=== PATIENT | male | born 1970 | race Caucasian/White ===

== ENCOUNTER 2016-05-03 12:01 | Inpatient (IN) | payer MEDICAID, OTHER ==
[2016-05-03] VITALS (8 sets, daily range): BP systolic 119–171; BP diastolic 57–85; PULSE 64–70; RESP 16–24; TEMP 97.1–97.9; O2SAT 94–99
[~2016-05-03] VITALS: Ht 177.8 cm; Wt 92.3 kg
[2016-05-03] MEDS ORDERED: HYDR-3516 PO (12:13)
[2016-05-03] MEDS ORDERED: LORA-392 PO (12:13)
[2016-05-03] MEDS ORDERED: LIPI40TA PO (12:13)
[2016-05-03] MEDS ORDERED: FISH1000 PO (12:13)
[2016-05-03] MEDS ORDERED: PROT40TA PO (12:13)
--- NOTE | 2016-05-03 12:23 | PD ---
HPI Chief Complaint: GI Complaint Time Seen by Provider: 12:18 Travel History International Travel<30 days: No Contact w/Intl Traveler<30days: No Traveled to known affect area: No History of Present Illness HPI 45-year-old male with history of hypertriglyceridemia resultant pancreatitis episodes. He presents for evaluation of abdominal pain. Symptoms started this morning at 9 AM. He describes it as a gnawing pain in the epigastric region which is constant with associated nausea, vomiting today. Denies chest pain, shortness of breath, fevers, chills, dysuria, hematuria, flank pain. He reports that the pain feels like previous pancreatitis episodes that he has had in the past. His local primary care physician is Dr. Coelho. He endorses very occasional alcohol use socially, none yesterday or today. No other complaints. PFSH Past Medical History Pancreatitis: Yes Influenza Vaccination: Yes Past Surgical History Surgical History: No Previous Surgery Social History Alcohol Use: Yes (occ) Tobacco Use: No Substance Use: Yes (marijuana occ) Allergies-Medications (Allergen,Severity, Reaction): Coded Allergies: No Known Allergies (Unverified , 05/03/16) Reported Meds & Prescriptions Reported Meds & Active Scripts Active Reported Fish Oil ([place]-3 Fatty Acids) 1,000 Mg Cap 1,000 Mg PO DAILY Hydrocodone-Acetaminophen 5-325 mg Tab 1 Tab PO Q6H PRN Ativan (Lorazepam) 0.5 Mg Tab 0.5 Mg PO Q4H PRN Protonix (Pantoprazole Sodium) 40 Mg Tab 40 Mg PO DAILY Lipitor (Atorvastatin Calcium) 40 Mg Tab 40 Mg PO HS Review of Systems Except as stated in HPI: all other systems reviewed are Neg Physical Exam Narrative GENERAL: Well-developed well-nourished male in no acute distress SKIN: Warm and dry. HEAD: Atraumatic. Normocephalic. EYES: Pupils equal and round. No scleral icterus. No injection or drainage. ENT: No nasal bleeding or discharge. Mucous membranes pink and moist. NECK: Trachea midline. No JVD. CARDIOVASCULAR: Regular rate and rhythm. No murmur appreciated. RESPIRATORY: No accessory muscle use. Clear to auscultation. Breath sounds equal bilaterally. GASTROINTESTINAL: Abdomen soft, there is some epigastric tenderness to palpation without guarding. No flank or periumbilical ecchymosis. MUSCULOSKELETAL: No obvious deformities. No edema. NEUROLOGICAL: Awake and alert. No obvious cranial nerve deficits. Motor grossly within normal limits. Normal speech. Data Data Last Documented VS Vital Signs Date Time Temp Pulse Resp B/P Pulse Ox O2 Delivery O2 Flow Rate FiO2 05/03/16 13:42 16 98 Room Air 05/03/16 12:04 97.9 68 137/77 Orders Complete Blood Count With Diff (05/03/16 12:24) Comprehensive Metabolic Panel (05/03/16 12:24) Lipase (05/03/16 12:24) Prothrombin Time / Inr (Pt) (05/03/16 12:24) Act Partial Throm Time (Ptt) (05/03/16 12:24) Urinalysis - C+S If Indicated (05/03/16 12:24) Iv Access Insert/Monitor (05/03/16 12:24) Ecg Monitoring (05/03/16 12:24) Oximetry (05/03/16 12:24) NPO (05/03/16 12:24) Morphine Inj (Morphine Inj) (05/03/16 12:30) Ondansetron Inj (Zofran Inj) (05/03/16 12:30) Sodium Chlor 0.9% 1000 Ml Inj (Ns 1000 M (05/03/16 12:24) Sodium Chloride 0.9% Flush (Ns Flush) (05/03/16 12:30) Electrocardiogram (05/03/16 12:24) Hydromorphone Pf Inj (Dilaudid Pf Inj) (05/03/16 13:45) Ondansetron Inj (Zofran Inj) (05/03/16 14:45) Sodium Chlor 0.9% 1000 Ml Inj (Ns 1000 M (05/03/16 16:26) Labs Laboratory Tests Test 05/03/16 05/03/16 05/03/16 12:30 13:30 14:14 White Blood Count 18.1 TH/MM3 Red Blood Count 4.90 MIL/MM3 Hemoglobin 13.9 GM/DL Hematocrit 41.1 % Mean Corpuscular Volume 83.9 FL Mean Corpuscular Hemoglobin 28.5 PG Mean Corpuscular Hemoglobin 33.9 % Concent Red Cell Distribution Width 13.3 % Platelet Count 370 TH/MM3 Mean Platelet Volume 9.2 FL Neutrophils (%) (Auto) 72.5 % Lymphocytes (%) (Auto) 20.1 % Monocytes (%) (Auto) 5.8 % Eosinophils (%) (Auto) 1.1 % Basophils (%) (Auto) 0.5 % Neutrophils # (Auto) 13.1 TH/MM3 Lymphocytes # (Auto) 3.6 TH/MM3 Monocytes # (Auto) 1.1 TH/MM3 Eosinophils # (Auto) 0.2 TH/MM3 Basophils # (Auto) 0.1 TH/MM3 CBC Comment AUTO DIFF Differential Comment Hematology Comments Prothrombin Time 10.7 SEC Prothromb Time International 1.0 RATIO Ratio Activated Partial 22.6 SEC Thromboplast Time Total Bilirubin 0.8 MG/DL Alkaline Phosphatase 48 U/L Total Protein 7.2 GM/DL Lipase 3484 U/L Urine Color YELLOW Urine Turbidity CLOUDY Urine pH 8.0 Urine Specific [place] 1.024 Urine Protein TRACE mg/dL Urine Glucose (UA) NEG mg/dL Urine Ketones NEG mg/dL Urine Occult Blood SMALL Urine Nitrite NEG Urine Bilirubin NEG Urine Urobilinogen LESS THAN 2.0 MG/DL Urine Leukocyte Esterase NEG Urine RBC 33 /hpf Urine WBC 1 /hpf Urine Amorphous Sediment RARE Urine Mucus FEW /lpf Microscopic Urinalysis Comment CULT NOT INDICATED MDM Medical Decision Making Medical Screen Exam Complete: Yes Emergency Medical Condition: Yes Medical Record Reviewed: Yes Differential Diagnosis Pancreatitis, hemorrhagic pancreatitis, cholecystitis, gastroenteritis, colitis , diverticulitis, AAA Narrative Course 45-year-old male with history of hypertriglyceridemia, presents for evaluation of epigastric pain started this morning, similar to previous episodes of pancreatitis. Examination he has some epigastric tenderness to palpation, some nausea and vomiting here in the ED. The patient was given pain medication and nausea medicine and he does feel improved. His lipase is elevated at 3484 with a WBC count of 18.1. Therefore the patient will be admitted for further evaluation and treatment of acute pancreatitis. Discussed with Dr. Meza who is agreeable with admission. Procedures EKG Prior to Arrival: Yes Diagnosis Primary Impression: Acute pancreatitis Qualified Code: K85.90 - Acute pancreatitis, unspecified complication status, unspecified pancreatitis type Admitting Information Admitting Physician Requests: Admit Chidi Carter May 03, 2016 12:23
[2016-05-03] MEDS ORDERED: SODIUM CHLOR 0.9% 1000 ML INJ 1,000 ML IV SCH ×2 (12:24→16:26)
[2016-05-03] MEDS ORDERED: MORPHINE SULFATE 4 MG/ML INJ IV PUSH ONE (12:30)
[2016-05-03] MEDS ORDERED: ONDANSETRON HCL 4 MG/2 ML VIAL IVP ONE (12:30)
[2016-05-03] MEDS ORDERED: SODIUM CHLORIDE 0.9% FLUSH 5 ML FLUSH IVF PRN (12:30)
--- NOTE | 2016-05-03 12:53 | PD ---
Physical Exam Date Seen by Provider: May 03, 2016 Narrative I, Dr. Oquendo, have reviewed the advance practice practitioner's documentation and am in agreement, met with the patient face to face, made the diagnosis, and the medical decision making was done by me. *My assessment and Findings: Patient is complaining of "my pancreatitis is acting up again" Data Data Last Documented VS Vital Signs Date Time Temp Pulse Resp B/P Pulse Ox O2 Delivery O2 Flow Rate FiO2 05/03/16 12:04 97.9 68 24 137/77 99 Room Air Orders Complete Blood Count With Diff (05/03/16 12:24) Comprehensive Metabolic Panel (05/03/16 12:24) Lipase (05/03/16 12:24) Prothrombin Time / Inr (Pt) (05/03/16 12:24) Act Partial Throm Time (Ptt) (05/03/16 12:24) Urinalysis - C+S If Indicated (05/03/16 12:24) Iv Access Insert/Monitor (05/03/16 12:24) Ecg Monitoring (05/03/16 12:24) Oximetry (05/03/16 12:24) NPO (05/03/16 12:24) Morphine Inj (Morphine Inj) (05/03/16 12:30) Ondansetron Inj (Zofran Inj) (05/03/16 12:30) Sodium Chlor 0.9% 1000 Ml Inj (Ns 1000 M (05/03/16 12:24) Sodium Chloride 0.9% Flush (Ns Flush) (05/03/16 12:30) Electrocardiogram (05/03/16 12:24) [facility] Supervised Visit with JOSE: Yes Rianna Oquendo MD May 03, 2016 12:53
[2016-05-03 13:41] LABS: WHITE BLOOD COUNT 18.1 TH/MM3 (4.0-11.0)
[2016-05-03 13:42] LABS: AUTOMATED NEUTROPHIL # 13.1 TH/MM3 (1.8-7.7); BASOPHIL # 0.1 TH/MM3 (0-0.2); BASOPHIL % 0.5 % (0.0-2.0); EOSINOPHIL # 0.2 TH/MM3 (0-0.4); EOSINOPHIL % 1.1 % (0.0-4.0); HEMATOCRIT 41.1 % (39.0-51.0); LYMPH % 20.1 % (9.0-44.0); LYMPHOCYTE # 3.6 TH/MM3 (1.0-4.8); MEAN CELL VOLUME 83.9 FL (80.0-100.0); MEAN CORPUSCULAR HEMOGLOBIN 28.5 PG (27.0-34.0); MEAN CORPUSCULAR HGB CONC 33.9 % (32.0-36.0); MONO % 5.8 % (0.0-8.0); NEUT % 72.5 % (16.0-70.0); PLATELET COUNT 370 TH/MM3 (150-450); RED CELL DISTRIBUTION WIDTH 13.3 % (11.6-17.2)
[2016-05-03 13:45] LABS: HEMO FLAGS AUTO DIFF
[2016-05-03] MEDS ORDERED: HYDROmorphone HCL PF 1 MG/ML VIAL IV PUSH ONE (13:45)
[2016-05-03 14:06] LABS: PROTHROMBIN TIME - PATIENT 10.7 SEC (9.8-11.6)
[2016-05-03 14:07] LABS: APTT (PATIENT) 22.6 SEC (24.3-30.1)
[2016-05-03 14:26] LABS: ALKALINE PHOSPHATASE 48 U/L (45-117); TOTAL BILIRUBIN ADULT 0.8 MG/DL (0.2-1.0)
[2016-05-03] MEDS ORDERED: ONDANSETRON HCL 4 MG/2 ML VIAL IV PUSH ONE (14:45)
[2016-05-03 14:48] LABS: BLOOD, URINE SMALL (NEG); COMMENT (UR) CULT NOT INDICATED; CULTURE IF INDICATED CULT NOT INDICATED; GLUCOSE,URINE NEG (NEG); KETONE, URINE NEG (NEG); MUCUS URINE FEW /lpf (OCC); NITRITE,URINE NEG (NEG); URINE COLOR YELLOW (YELLW/STRAW)
[2016-05-03 17:11] LABS: ANION GAP 9 MEQ/L (5-15); BICARBONATE 22.8 MEQ/L (21.0-32.0); BLOOD UREA NITROGEN 15 MG/DL (7-18); CHLORIDE 101 MEQ/L (98-107); SODIUM (NA) 133 MEQ/L (136-145)
[2016-05-03] MEDS ORDERED: MORPHINE SULFATE 8 MG/ML INJ IV PUSH PRN (17:15)
[2016-05-03 17:32] LABS: AST (GOT) 271 U/L (15-37)
[2016-05-03 17:33] LABS: GLOMERULAR FILTRATION RATE 84 ML/MIN (>89)
[2016-05-03] MEDS: DEXT 5%-NACL 0.45% 1000 ML INJ 1,000 ML IV SCH (17:58)
[2016-05-03] MEDS: FAMOTIDINE 20 MG/2 ML VIAL IV PUSH SCH (17:58)
[2016-05-03 18:18] LABS: ALT (GPT) 46 U/L (12-78)
[2016-05-03] MEDS: ONDANSETRON HCL 4 MG/2 ML VIAL IV PUSH PRN (19:12)
[2016-05-03] MEDS: ATORVASTATIN 40 MG TAB PO SCH (20:01)
[2016-05-03] MEDS ORDERED: HYDROmorphone HCL PF 1 MG/ML VIAL IV PRN (20:30)
[2016-05-03] MEDS: LORazepam 0.5 MG TAB PO PRN (23:01)
[2016-05-03] MEDS: HYDROmorphone HCL PF 1 MG/ML VIAL IV PRN (23:01)
[2016-05-04] VITALS (7 sets, daily range): BP systolic 133–144; BP diastolic 73–90; PULSE 68–110; RESP 16–20; TEMP 97.5–99.4; O2SAT 95–98
[2016-05-04] MEDS: DEXT 5%-NACL 0.45% 1000 ML INJ 1,000 ML IV SCH ×4 (00:40→20:01)
[2016-05-04] MEDS: HYDROmorphone HCL PF 1 MG/ML VIAL IV PRN ×7 (01:54→23:05)
[2016-05-04] MEDS: ONDANSETRON HCL 4 MG/2 ML VIAL IV PUSH PRN ×3 (01:55→13:30)
[2016-05-04] MEDS ORDERED: HYDROmorphone HCL PF 1 MG/ML VIAL IV ONE (05:00)
[2016-05-04] MEDS ORDERED: HYDROmorphone HCL PF 2 MG/ML VIAL IV PRN ×2 (05:15→12:15)
[2016-05-04] MEDS: FAMOTIDINE 20 MG/2 ML VIAL IV PUSH SCH ×2 (05:35→17:05)
[2016-05-04 07:52] LABS: HEMATOCRIT 40.5 % (39.0-51.0); MEAN CELL VOLUME 83.7 FL (80.0-100.0); MEAN CORPUSCULAR HEMOGLOBIN 29.9 PG (27.0-34.0); MEAN CORPUSCULAR HGB CONC 35.8 % (32.0-36.0); PLATELET COUNT 274 TH/MM3 (150-450); RED BLOOD COUNT 4.84 MIL/MM3 (4.50-5.90); RED CELL DISTRIBUTION WIDTH 13.1 % (11.6-17.2); REVIEW FLAG FINAL; WHITE BLOOD COUNT 17.6 TH/MM3 (4.0-11.0)
[2016-05-04] MEDS: PANTOPRAZOLE SOD 40 MG DELAYED RELEASE TAB PO SCH (08:04)
[2016-05-04 08:30] LABS: ALT (GPT) 28 U/L (12-78); ANION GAP 8 MEQ/L (5-15); AST (GOT) 21 U/L (15-37); BLOOD UREA NITROGEN 7 MG/DL (7-18); CHLORIDE 100 MEQ/L (98-107); POTASSIUM 3.8 MEQ/L (3.5-5.1); SODIUM (NA) 136 MEQ/L (136-145)
[2016-05-04 08:32] LABS: ALKALINE PHOSPHATASE 46 U/L (45-117); TOTAL BILIRUBIN ADULT 0.9 MG/DL (0.2-1.0)
[2016-05-04] MEDS: ENOXAPARIN SODIUM 40 MG/0.4 ML SYRINGE SQ SCH (11:00)
--- NOTE | 2016-05-04 11:46 | MH ---
cc: EDVIN CUELLAR MD DATE OF ADMISSION: 05/03/2016 CHIEF COMPLAINT The patient came to the ER complaining of abdominal pain for one day. HISTORY OF PRESENT ILLNESS This is a 45-year-old obese male with prior history of recurrent pancreatitis. He admits to drinking alcohol. 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 He also has history of hypertriglyceridemia. He had multiple episodes of pancreatitis in the past. He was in his usual state of health until yesterday when he developed severe abdominal pain. He described this as constant bad pain involving upper abdomen and was non-radiating, associated with nauseousness, he denies vomiting. Denies fever or chills. Pain was worsened when eating. Due to the severity of pain he came to the hospital. Upon arrival he was noted to be hemodynamically stable. He has significant epigastric tenderness. Labs show evidence of leukocytosis with elevated liver enzymes and lipase. He was diagnosed with acute pancreatitis. He was given IV fluids along with IV analgesics. Recommendation was given by the ER physician for the patient to be admitted to the hospital. PAST MEDICAL HISTORY Past medical history of this patient is significant for: 1. Recurrent pancreatitis. 2. Hyperlipidemia. 3. GERD. PAST SURGICAL HISTORY The patient denies any major operations. SOCIAL HISTORY The patient denies smoking, drinks alcohol a few beers a day and sometimes drinks vodka mostly on the weekends. He denies any intravenous drug abuse. He uses weed sometimes. He is and lives with his . MEDICATION Home medications: 1. He takes Ativan 0.5 mg q.4 hours p.r.n. 2. Lipitor 40 mg daily. 3. Lortab 5 one q. 6 hours p.r.n. 4. [place]-3 fatty acid daily. 5. Protonix 40 mg daily. FAMILY HISTORY Father at the age of 57 from prostate cancer. Mother is 70 years old, she is healthy except for hyperlipidemia. REVIEW OF SYSTEMS The patient denies headache, loss of vision, double vision. Denies change in hearing. Denies sore throat, dysphagia, odynophagia. Denies cough or sputum production. Denies fevers, chills, night sweats. He reports nauseousness and had some vomiting after taking IV Dilaudid. He denies change in bowel pattern, he had large BM yesterday, denies melena or bright red blood per rectum. Denies dysuria or hematuria. He is not very compliant with his cholesterol medication and does not take them as regularly as he should. He also reports hoarseness of his voice for the last couple of days. Otherwise, review of systems is negative for 12 systems except for what is mentioned above. PHYSICAL EXAMINATION GENERAL: A middle-aged male lying in bed. He is awake, alert. He is oriented x3. VITAL SIGNS: Upon arrival, blood pressure 137/77, pulse 68, respirations 24, temperature 97.9. 02 sat 99%. HEENT: Head examination, normocephalic, atraumatic. Eye exam, extraocular movements intact. Pupils are around and reactive. ENT, no throat congestion. No oral ulcers or thrush. Ears are clear. NECK: Supple. No JVD. No bruits. CARDIOVASCULAR: S1, S2 audible. Regular rhythm. No murmur or gallop. RESPIRATORY SYSTEM: Lungs are clear to auscultation. No crackles or rhonchi appreciated. GI: Abdomen is soft. The patient has upper abdominal tenderness and some voluntary guarding. No rigidity. No rebound tenderness. No ___ sign. No Robe's sign. EXTREMITIES: No edema, cyanosis or clubbing. Feet are warm to touch. Homans' sign is negative. LABORATORY DATA White count 18.1, hemoglobin 13.9, hematocrit 41.1, platelet count of 370, MCV of 83.9. Sodium 133, potassium 3.6, chloride 101, bicarb 22.8, BUN of 15, creatinine 0.97, glucose 149, calcium 8.2. ALP 48, AST 271, ALT 46, total bili 0.8, albumin 3.8, total protein 7.8. Lipase 374 and 84. Repeat lipase today is 2617. Urine shows yellow cloudy urine, pH 8.0, specific gravity 1.024, occult blood small, RBCs 33. ASSESSMENT 1. Acute pancreatitis, suspect alcohol induced plus/minus hypertriglyceridemia probably playing some role. 2. The leukocytosis due to above. 3. Elevated AST due to alcohol use. 4. History of alcohol use. 5. History of anxiety. 6. Gastroesophageal reflux disease. 7. Microscopic hematuria. PLAN The patient will be admitted to the hospital. He is currently n.p.o. Will aggressively hydrate him and put him on D5 half NS 150 cc an hour. Control his pain with IV analgesics. Obtain ultrasound of the liver and gallbladder. Consult GI telephone interviewer. Put on Pepcid for GI protection. Resume home medications. Give him subcu Lovenox for DVT prophylaxis. Monitor CBC, electrolyte. The patient meets inpatient criteria due to severe pancreatitis which can get worse and may turn into pancreatic abscess, pseudocyst formation or severe pancreatitis that may result in organ failure. Expected length of stay is about 3-4 days, possibly discharge home when stable. I have counseled the patient against alcohol use, I have advised him to completely abstain from drinking. Hazards of continuous drinking, especially in the face of recurrent pancreatitis was explained. Consequences of recurrent pancreatitis was also explained to the patient and he relates understanding. MD BERNARDA Trinh/JOAN /10:46 AM 11:09 AM
--- NOTE | 2016-05-04 12:37 | PD.CONS ---
HPI History of Present Illness This is a 45 year old male admitted with abdominal pain which was severe the pain was constant and involved the upper abdomen and was associated with N/V.He has had multiple episodes of pancreatitis in the past which he states is secondary to hypertriglycerides. He had nausea, denies vomiting. Denies fever or chills. Pain was worse with eating. On exam he has significant epigastric tenderness. Labs showed evidence of leukocytosis, and a lipase of 3484 down today to 2617.He is NPO. He did admite to drinking a significant amount of alcohol over holiday. (Felicia Ruiz) PFSH Past Medical History Recurrent pancreatitis Hypertriglyceridemia GERD Past Surgical History Denies any surgeries in the past (Felicia Ruiz) Coded Allergies: No Known Allergies (Unverified , 05/03/16) Medications Reported Meds & Active Scripts Active Reported Fish Oil ([place]-3 Fatty Acids) 1,000 Mg Cap 1,000 Mg PO DAILY Hydrocodone-Acetaminophen 5-325 mg Tab 1 Tab PO Q6H PRN Ativan (Lorazepam) 0.5 Mg Tab 0.5 Mg PO Q4H PRN Protonix (Pantoprazole Sodium) 40 Mg Tab 40 Mg PO DAILY Lipitor (Atorvastatin Calcium) 40 Mg Tab 40 Mg PO HS Family History Prostate CA Hyperlipidemia Social History Drinks 1 to 2 drinks daily 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 Uses Marijuana occ (Felicia Ruiz) Review of Systems Gastrointestinal: COMPLAINS OF: Abdominal pain, Nausea, DENIES: Constipation, Diarrhea, Vomiting (Felicia Ruiz) GI Exam Vitals I&O Vital Signs Date Time Temp Pulse Resp B/P Pulse Ox O2 Delivery O2 Flow Rate FiO2 05/04/16 08:00 97.6 78 20 144/86 98 05/04/16 04:00 98.2 71 18 135/77 97 05/04/16 00:00 97.9 68 18 139/90 97 05/03/16 18:40 97.1 70 16 138/77 99 05/03/16 17:00 64 18 151/81 95 Room Air 05/03/16 16:00 64 18 136/63 95 Room Air 05/03/16 15:00 66 16 171/85 95 Room Air 05/03/16 14:00 70 18 119/57 94 Room Air 05/03/16 13:42 16 98 Room Air 05/03/16 13:00 68 16 132/65 95 Room Air I/O 05/03/16 05/03/16 05/03/16 05/04/16 05/04/16 05/04/16 07:00 15:00 23:00 07:00 15:00 23:00 Intake Total 0 ml 1588 ml 0 ml Output Total 300 ml Balance 0 ml 1588 ml -300 ml Intake Oral 0 ml 0 ml IV Total 1588 ml Output Urine Total 300 ml # Voids 2 1 # Bowel Movements 0 Laboratory Test 05/03/16 05/03/16 05/03/16 05/03/16 12:30 13:30 14:14 16:04 White Blood Count 18.1 TH/MM3 Red Blood Count 4.90 MIL/MM3 Hemoglobin 13.9 GM/DL Hematocrit 41.1 % Mean Corpuscular Volume 83.9 FL Mean Corpuscular Hemoglobin 28.5 PG Mean Corpuscular Hemoglobin 33.9 % Concent Red Cell Distribution Width 13.3 % Platelet Count 370 TH/MM3 Mean Platelet Volume 9.2 FL Neutrophils (%) (Auto) 72.5 % Lymphocytes (%) (Auto) 20.1 % Monocytes (%) (Auto) 5.8 % Eosinophils (%) (Auto) 1.1 % Basophils (%) (Auto) 0.5 % Neutrophils # (Auto) 13.1 TH/MM3 Lymphocytes # (Auto) 3.6 TH/MM3 Monocytes # (Auto) 1.1 TH/MM3 Eosinophils # (Auto) 0.2 TH/MM3 Basophils # (Auto) 0.1 TH/MM3 CBC Comment AUTO DIFF Differential Comment Hematology Comments Prothrombin Time 10.7 SEC Prothromb Time International 1.0 RATIO Ratio Activated Partial 22.6 SEC Thromboplast Time Urine Color YELLOW Urine Turbidity CLOUDY Urine pH 8.0 Urine Specific [place] 1.024 Urine Protein TRACE mg/dL Urine Glucose (UA) NEG mg/dL Urine Ketones NEG mg/dL Urine Occult Blood SMALL Urine Nitrite NEG Urine Bilirubin NEG Urine Urobilinogen LESS THAN 2.0 MG/DL Urine Leukocyte Esterase NEG Urine RBC 33 /hpf Urine WBC 1 /hpf Urine Amorphous Sediment RARE Urine Mucus FEW /lpf Microscopic Urinalysis Comment CULT NOT INDICATED Sodium Level 133 MEQ/L Potassium Level MEQ/L Chloride Level 101 MEQ/L Carbon Dioxide Level 22.8 MEQ/L Anion Gap 9 MEQ/L Blood Urea Nitrogen 15 MG/DL Creatinine 0.97 MG/DL Estimat Glomerular Filtration 84 ML/MIN Rate Random Glucose 149 MG/DL Calcium Level 8.2 MG/DL Total Bilirubin 0.8 MG/DL Aspartate Amino Transf 271 U/L (AST/SGOT) Alanine Aminotransferase 46 U/L (ALT/SGPT) Alkaline Phosphatase 48 U/L Total Protein 7.2 GM/DL Albumin 3.8 GM/DL Lipase 3484 U/L Test 05/03/16 05/04/16 21:29 07:00 Potassium Level 3.6 MEQ/L 3.8 MEQ/L White Blood Count 17.6 TH/MM3 Red Blood Count 4.84 MIL/MM3 Hemoglobin 14.5 GM/DL Hematocrit 40.5 % Mean Corpuscular Volume 83.7 FL Mean Corpuscular Hemoglobin 29.9 PG Mean Corpuscular Hemoglobin 35.8 % Concent Red Cell Distribution Width 13.1 % Platelet Count 274 TH/MM3 Mean Platelet Volume 8.1 FL Sodium Level 136 MEQ/L Chloride Level 100 MEQ/L Carbon Dioxide Level 28.0 MEQ/L Anion Gap 8 MEQ/L Blood Urea Nitrogen 7 MG/DL Creatinine 0.97 MG/DL Random Glucose 136 MG/DL Calcium Level 8.9 MG/DL Total Bilirubin 0.9 MG/DL Aspartate Amino Transf 21 U/L (AST/SGOT) Alanine Aminotransferase 28 U/L (ALT/SGPT) Alkaline Phosphatase 46 U/L Total Protein 7.0 GM/DL Albumin 3.9 GM/DL Lipase 2617 U/L Physical Examination HEENT: Pupils round and reactive to light; normocephalic; atraumatic; no jaundice. Throat is clear. NECK: Neck is supple, no JVD, no lymphadenopathy. CHEST: Chest is clear to auscultation and percussion. CARDIAC: Regular rate and rhythm with no murmur gallop or rubs. ABDOMEN: Soft, nondistended, tender epigastric area; no hepatosplenomegaly; bowel sounds are present in all four quadrants. EXTREMITIES: No clubbing, cyanosis, or edema. SKIN: Normal; no rash; no jaundice. 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 (Felicia Ruiz) Assessment and Plan Assessment: (1) Acute pancreatitis Plan: Has recurrent Pancreatitis related to hyperlipidemia but did amount to drinking alcohol and this could be alcohol induced Has significant epigastric tenderness and nausea US liver and gallbladder are ordered Continue aggressive Iv fluid hydration May need CT abdomen Pain management Antiemetics (2) GERD (gastroesophageal reflux disease) Plan: Continue PPI Epigastric pain likely secondary to pancreatitis (3) Leukocytosis Plan: Likely secondary to acute pancreatitis Plan Plan -IV hydration -US liver and GB -NPO -Lipase, CBC and lipid panel in am -Alcohol cessation -Pain management -PPI -Autoimmune work up -May need CT abdomen -Supportive care Thank you for this consult Patient was seen by Dr Rossi and myself, this consult is written on his behalf (Felicia Ruiz) Physician Comments Seen and examined, plan as above, will follow up with you. (Diana Rossi MD) Problem Qualifiers (1) Acute pancreatitis: Qualified Code: K85.90 - Acute pancreatitis, unspecified complication status, unspecified pancreatitis type (2) GERD (gastroesophageal reflux disease): Qualified Code: K21.9 - Gastroesophageal reflux disease, esophagitis presence not specified Felicia Ruiz May 04, 2016 12:37 Diana Rossi MD May 04, 2016 14:33
[2016-05-04 13:29] LABS: HDL CHOLESTEROL 36.7 MG/DL (40.0-60.0)
[2016-05-04] MEDS: LORazepam 0.5 MG TAB PO PRN ×2 (13:30→18:16)
--- NOTE | 2016-05-04 16:17 | RADRPT ---
EXAM DATE/TIME: 05/04/2016 14:17 [place] COMPARISON: No previous studies available for comparison. INDICATIONS : Increased lab values. MEDICAL HISTORY : Hypercholesterolemia. Pancreatitis. SURGICAL HISTORY : None. ENCOUNTER: Initial ACUITY: 1 day PAIN SCORE: 3/10 LOCATION: Abdomen. MEASUREMENTS: LIVER: 17.9 cm length COMMON DUCT: 4 mm RIGHT KIDNEY: 12.2 x 5.1 x 5.6 cm SPLEEN: 10.7 cm length FINDINGS: LIVER: Normal echotexture without focal lesion or ductal dilatation. COMMON DUCT: No intraluminal mass or stone visualized. GALLBLADDER: There is a 17 mm mobile stone in the lumen. No gallbladder wall thickening or pericholecystic fluid. PANCREAS: The visualized portions are within normal limits. RIGHT KIDNEY: No hydronephrosis, stone or mass. SPLEEN: No focal lesion. CONCLUSION: 1. Nonspecific mild hepatomegaly. 2. Single stone in an otherwise normal-appearing gallbladder. No ductal stone or ductal dilatation de monstrated. Carmelo Atkins MD on May 04, 2016 at 16:14 Board Certified Radiologist. This report was verified electronically.
--- NOTE | 2016-05-04 17:46 | EKG ---
Date Performed: 05/03/2016 Time Performed: 14:44:10 PTAGE: 45 years EKG: Sinus rhythm NORMAL ECG NO PREVIOUS TRACING DOCTOR: Nicky Lema Interpretating Date/Time 05/04/2016 17:44:20
[2016-05-04] MEDS: ATORVASTATIN 40 MG TAB PO SCH (20:01)
[2016-05-05] VITALS (8 sets, daily range): BP systolic 120–131; BP diastolic 56–77; PULSE 77–89; RESP 16–18; TEMP 96–100.5; O2SAT 95–99
[2016-05-05] MEDS: DEXT 5%-NACL 0.45% 1000 ML INJ 1,000 ML IV SCH ×3 (01:31→22:24)
[2016-05-05] MEDS: HYDROmorphone HCL PF 1 MG/ML VIAL IV PRN ×7 (02:11→22:44)
[2016-05-05] MEDS: FAMOTIDINE 20 MG/2 ML VIAL IV PUSH SCH ×2 (05:20→17:49)
[2016-05-05 08:07] LABS: HEMATOCRIT 40.4 % (39.0-51.0); MEAN CELL VOLUME 87.2 FL (80.0-100.0); MEAN CORPUSCULAR HEMOGLOBIN 29.7 PG (27.0-34.0); PLATELET COUNT 230 TH/MM3 (150-450); RED BLOOD COUNT 4.63 MIL/MM3 (4.50-5.90); RED CELL DISTRIBUTION WIDTH 13.8 % (11.6-17.2); REVIEW FLAG FINAL; WHITE BLOOD COUNT 15.9 TH/MM3 (4.0-11.0)
[2016-05-05 08:21] LABS: ALKALINE PHOSPHATASE 44 U/L (45-117); ALT (GPT) 18 U/L (12-78); ANION GAP 7 MEQ/L (5-15); AST (GOT) 13 U/L (15-37); BICARBONATE 25.9 MEQ/L (21.0-32.0); BLOOD UREA NITROGEN 6 MG/DL (7-18); CHLORIDE 102 MEQ/L (98-107); GLOMERULAR FILTRATION RATE 95 ML/MIN (>89); POTASSIUM 3.2 MEQ/L (3.5-5.1); SODIUM (NA) 135 MEQ/L (136-145)
[2016-05-05] MEDS: PANTOPRAZOLE SOD 40 MG DELAYED RELEASE TAB PO SCH (08:32)
--- NOTE | 2016-05-05 08:53 | HHI.PR ---
Subjective History of Present Illness Patient c/o abdominal pain d/w ERIN Navarro no acute issue. Low potassium will replace. High WBC Count down trend. Abdominal US shows gall stone. Review of Systems Constitutional Constitutional: Fatigue, Weakness GI/Abdomen GI/Abdominal Exam: Abdominal Pain Vitals/Results Intake & Output 05/04/16 05/04/16 05/05/16 15:00 23:00 07:00 Intake Total 0 ml 1200 ml 1200 ml Output Total 300 ml 700 ml Balance -300 ml 1200 ml 500 ml Intake Oral 0 ml IV Total 1200 ml 1200 ml Output Urine Total 300 ml 700 ml # Voids 2 2 # Bowel Movements 1 Vital Signs Vital Signs Date Time Temp Pulse Resp B/P Pulse Ox O2 Delivery O2 Flow Rate FiO2 05/05/16 08:31 97.2 82 123/71 05/05/16 04:15 100.5 89 16 125/69 96 05/05/16 00:00 99.3 88 16 131/68 95 05/04/16 20:00 99.0 87 16 141/73 96 05/04/16 16:00 97.5 84 20 142/73 97 05/04/16 12:00 99.4 88 18 140/79 97 CBC/BMP: 05/05/16 0653 05/05/16 0653 Lab Results Laboratory Tests Test 05/05/16 06:53 White Blood Count 15.9 TH/MM3 Red Blood Count 4.63 MIL/MM3 Hemoglobin 13.7 GM/DL Hematocrit 40.4 % Mean Corpuscular Volume 87.2 FL Mean Corpuscular Hemoglobin 29.7 PG Mean Corpuscular Hemoglobin 34.0 % Concent Red Cell Distribution Width 13.8 % Platelet Count 230 TH/MM3 Mean Platelet Volume 8.4 FL Sodium Level 135 MEQ/L Potassium Level 3.2 MEQ/L Chloride Level 102 MEQ/L Carbon Dioxide Level 25.9 MEQ/L Anion Gap 7 MEQ/L Blood Urea Nitrogen 6 MG/DL Creatinine 0.87 MG/DL Estimat Glomerular Filtration 95 ML/MIN Rate Random Glucose 130 MG/DL Calcium Level 8.6 MG/DL Total Bilirubin 1.0 MG/DL Aspartate Amino Transf 13 U/L (AST/SGOT) Alanine Aminotransferase 18 U/L (ALT/SGPT) Alkaline Phosphatase 44 U/L Total Protein 6.9 GM/DL Albumin 3.4 GM/DL Lipase 888 U/L Physical Exam General General Appearance: No Acute Distress, Comfortable Eyes Eye Exam: Sclera White, Extraocular Movement Intact Ears & Nose Ears & Nose Exam: Nasal Mucosa [place] Throat Throat Exam: Oral Mucosa [place] & Moist, Oral Pharynx Normal Neck Neck Exam: Neck Supple, Trachea Midline Pulmonary Resp Exam: Clear Bilaterally, Breath Sounds Equal Cardiology CV Exam: Regular, Normal Sinus Rhythm Gastrointestinal/Abdomen GI Exam: Soft, Positive Bowel Movement GI Remarks Epigastric tenderness. Musculoskeletal MS Exam: Joints Intact Integumentary Skin Exam: Clear, Warm, Dry, Intact, Normal Turgor Extremeties Extremities Exam: No Edema, Pedal Pulses Palpable Neurologic Neuro Exam: Alert, Awake, Oriented, Speech Clear, Moving All Extremities, No Focal Deficits PUD Prophylasis PUD Prophylaxis: Protonix Assessment/Plan Assessment/Plan ASSESSMENT 1. Acute pancreatitis, suspect alcohol induced plus/minus hypertriglyceridemia probably playing some role. 2. The leukocytosis due to above. 3. Elevated AST due to alcohol use. 4. History of alcohol use. 5. History of anxiety. 6. Gastroesophageal reflux disease. 7. Microscopic hematuria. 8. Hypokalemia. will replace. High WBC Count down trend. PLAN He is currently n.p.o. Will aggressively hydrate him and put him on D5 half NS 150 cc an hour. Control his pain with IV analgesics. checked ultrasound of the liver and gallbladder. GI input noted. Abdominal US shows gall stone. on Pepcid for GI protection. subcut. Lovenox for DVT prophylaxis. Check CBC, CMP Lipase in AM. I have counseled the patient against alcohol use, I have advised him to completely abstain from drinking. Hazards of continuous drinking, especially in the face of recurrent pancreatitis was explained. Consequences of recurrent pancreatitis was also explained to the patient and he relates understanding. Discussed Condition with: Patient Luis E Coelho MD May 05, 2016 08:53
[2016-05-05] MEDS: ENOXAPARIN SODIUM 40 MG/0.4 ML SYRINGE SQ SCH (11:27)
--- NOTE | 2016-05-05 12:22 | HHI.GIFU ---
Subjective Remarks Patient is resting in bed, reports feeling hot and has cold compresses on forehead, reports abdominal pain on the left side, resolved with pain meds ( Brijesh Ray) Objective Vitals I&O Vital Signs Date Time Temp Pulse Resp B/P Pulse Ox O2 Delivery O2 Flow Rate FiO2 05/05/16 11:19 98.8 79 18 121/77 97 05/05/16 08:53 99.3 16 05/05/16 08:31 97.2 82 123/71 05/05/16 04:15 100.5 89 16 125/69 96 05/05/16 00:00 99.3 88 16 131/68 95 05/04/16 20:00 99.0 87 16 141/73 96 05/04/16 16:00 97.5 84 20 142/73 97 I/O 05/04/16 05/04/16 05/04/16 05/05/16 05/05/16 05/05/16 06:59 14:59 22:59 06:59 14:59 22:59 Intake Total 1588 ml 0 ml 1200 ml 1200 ml Output Total 300 ml 700 ml Balance 1588 ml -300 ml 1200 ml 500 ml Intake Oral 0 ml IV Total 1588 ml 1200 ml 1200 ml Output Urine Total 300 ml 700 ml # Voids 2 2 # Bowel Movements 1 Laboratory Laboratory Tests Test 05/05/16 06:53 White Blood Count 15.9 Red Blood Count 4.63 Hemoglobin 13.7 Hematocrit 40.4 Mean Corpuscular Volume 87.2 Mean Corpuscular Hemoglobin 29.7 Mean Corpuscular Hemoglobin 34.0 Concent Red Cell Distribution Width 13.8 Platelet Count 230 Mean Platelet Volume 8.4 Sodium Level 135 Potassium Level 3.2 Chloride Level 102 Carbon Dioxide Level 25.9 Anion Gap 7 Blood Urea Nitrogen 6 Creatinine 0.87 Estimat Glomerular Filtration 95 Rate Random Glucose 130 Calcium Level 8.6 Total Bilirubin 1.0 Aspartate Amino Transf 13 (AST/SGOT) Alanine Aminotransferase 18 (ALT/SGPT) Alkaline Phosphatase 44 Total Protein 6.9 Albumin 3.4 Lipase 888 Imaging Last Impressions Liver Ultrasound 05/04/16 0000 Signed Impressions: Service Date/Time: Wednesday, May 04, 2016 14:17 - CONCLUSION: 1. Nonspecific mild hepatomegaly. 2. Single stone in an otherwise normal-appearing gallbladder. No ductal stone or ductal dilatation demonstrated. Carmelo Atkins MD Physical Exam HEENT: Pupils round and reactive to light; normocephalic; atraumatic; no jaundice. Throat is clear. NECK: Neck is supple, no JVD, no lymphadenopathy. CHEST: Chest is clear to auscultation and percussion. CARDIAC: Regular rate and rhythm with no murmur gallop or rubs. ABDOMEN: Soft, nondistended,some tenderness on the left; hepatosplenomegaly; bowel sounds are present in all four quadrants. EXTREMITIES: No clubbing, cyanosis, or edema. SKIN: Normal; no rash; no jaundice. FLYING I INSTRUCTOR: No focal deficits; alert and oriented times three. (Brijesh Ray) Assessment and Plan Assessment: (1) Acute pancreatitis Plan: Has recurrent Pancreatitis related to hyperlipidemia but did amount to drinking alcohol and this could be alcohol induced Lipase trending down LFTs normal IGG 4 pending US liver and gallbladder showed hepatomegaly , and single gallstone Continue aggressive Iv fluid hydration will order CT of abd Pain management Antiemetics (2) GERD (gastroesophageal reflux disease) Plan: Continue PPI Epigastric pain likely secondary to pancreatitis (3) Leukocytosis Plan: Improving, but low grade fever of 99, Likely secondary to acute pancreatitis Plan Plan -IV hydration -CT of abd -NPO -Lipase, CBC and lipid panel in am -Alcohol cessation -Pain management -PPI -Await IGG-4 -Supportive care Patient was seen by Dr Patel and myself, this consult is written on his behalf (Brijesh Ray) Physician Comments Patient was seen and examined, agree with above note. we will check labs, continue supportive care.awaiting CT results, may advance to liquid diet if ct ok and no pain. (Markus Patel MD) Problem Qualifiers (1) Acute pancreatitis: Qualified Code: K85.90 - Acute pancreatitis, unspecified complication status, unspecified pancreatitis type (2) GERD (gastroesophageal reflux disease): Qualified Code: K21.9 - Gastroesophageal reflux disease, esophagitis presence not specified Brijesh Ray May 05, 2016 12:22 Markus Patel MD May 05, 2016 22:05
[2016-05-05] MEDS ORDERED: DIATRIZOATE MEGLUM/DIATRIZOATE SOD 9 ML CUP PO ONE (17:15)
[2016-05-05] MEDS ORDERED: POTASSIUM CL 40 MEQ/30 ML LIQ UDC PO ONE (20:00)
[2016-05-05] MEDS ORDERED: IOHEXOL 350 MG/ML 10 ML VIAL (for RAD DIAG) IV ONE (21:22)
[2016-05-05] MEDS: ATORVASTATIN 40 MG TAB PO SCH (21:43)
[2016-05-05] MEDS: LORazepam 0.5 MG TAB PO PRN (22:42)
--- NOTE | 2016-05-05 22:52 | RADRPT ---
EXAM DATE/TIME: 05/05/2016 21:14 [facility] COMPARISON: No previous studies available for comparison. INDICATIONS : Elevated lipase with upper abdomen pain. Possible pancreatitis. IV CONTRAST: 95 cc Omnipaque 350 (iohexol) IV ORAL CONTRAST: Prescribed oral contrast ingested. RADIATION DOSE: 12.48 CTDIvol (mGy) MEDICAL HISTORY : Cardiovascular disease. Pancreatitis. SURGICAL HISTORY : None. ENCOUNTER: Initial ACUITY: 2 days PAIN SCALE: 6/10 LOCATION: Bilateral upper abdomen TECHNIQUE: Volumetric scanning of the abdomen and pelvis was performed. Using automated exposure control and ad justment of the mA and/or kV according to patient size, radiation dose was kept as low as reasonably achievable to obtain optimal diagnostic quality images. FINDINGS: LOWER LUNGS: The visualized lower lungs are clear. LIVER: Homogeneous density without lesion. There is no dilation of the biliary tree. Single calcified galls tone. SPLEEN: Normal size without lesion. PANCREAS: The pancreas is abnormal with mild apparent swelling of the pancreatic head and slight induration of the peripancreatic tissues most conspicuously adjacent to the head and pancreatic tail region. Mild i nduration extends into the left anterior pararenal space and left paracolic gutter. There is a slight ly greater than 2 cm focal low density area within the substance of the pancreatic tail which may be some devitalized tissue or developing collection. Mass is not entirely excluded, however felt less li anitha. KIDNEYS: Normal in size and shape. There is no mass, stone or hydronephrosis. ADRENAL GLANDS: Within normal limits. VASCULAR: There is no aortic aneurysm. BOWEL/MESENTERY: The stomach, small bowel, and colon demonstrate no acute abnormality. There is no free intraperitone al air or fluid. ABDOMINAL WALL: Within normal limits. RETROPERITONEUM: There is no lymphadenopathy. BLADDER: No wall thickening or mass. REPRODUCTIVE: Within normal limits. INGUINAL: There is no lymphadenopathy or hernia. MUSCULOSKELETAL: Within normal limits for patient age. CONCLUSION: Abnormal appearance of the pancreas as described in detail. Gallstone. Carmelo Ryan MD on May 05, 2016 at 22:45 Board Certified Radiologist. This report was verified electronically.
[2016-05-06] VITALS: BP 109/57; PULSE 81; RESP 16; TEMP 99; O2SAT 98
[2016-05-06 04:00] VITALS: BP 137/69; PULSE 75; RESP 18; TEMP 99.6; O2SAT 98
[2016-05-06] MEDS: LORazepam 0.5 MG TAB PO PRN ×2 (04:10→21:44)
[2016-05-06] MEDS: HYDROmorphone HCL PF 1 MG/ML VIAL IV PRN (04:11)
[2016-05-06] MEDS: DEXT 5%-NACL 0.45% 1000 ML INJ 1,000 ML IV SCH ×3 (05:07→18:07)
[2016-05-06] MEDS: FAMOTIDINE 20 MG/2 ML VIAL IV PUSH SCH ×2 (05:11→18:02)
[2016-05-06 08:00] VITALS: BP 119/64; PULSE 70; RESP 16; TEMP 96; O2SAT 99
[2016-05-06 08:16] LABS: AUTOMATED NEUTROPHIL # 7.4 TH/MM3 (1.8-7.7); BASOPHIL % 0.2 % (0.0-2.0); EOSINOPHIL # 0.3 TH/MM3 (0-0.4); EOSINOPHIL % 2.5 % (0.0-4.0); HEMATOCRIT 37.5 % (39.0-51.0); HEMO FLAGS DIFF FINAL; LYMPH % 23.1 % (9.0-44.0); LYMPHOCYTE # 2.6 TH/MM3 (1.0-4.8); MEAN CELL VOLUME 85.6 FL (80.0-100.0); MEAN CORPUSCULAR HEMOGLOBIN 29.3 PG (27.0-34.0); MEAN CORPUSCULAR HGB CONC 34.3 % (32.0-36.0); MONO % 7.3 % (0.0-8.0); NEUT % 66.9 % (16.0-70.0); PLATELET COUNT 248 TH/MM3 (150-450); RED BLOOD COUNT 4.38 MIL/MM3 (4.50-5.90); RED CELL DISTRIBUTION WIDTH 13.3 % (11.6-17.2)
--- NOTE | 2016-05-06 08:28 | HHI.PR ---
Subjective History of Present Illness Patient c/o abdominal pain d/w ERIN Navarro no acute issue. Low potassium resolved.. High WBC Count resolved. Advance diet as tolerated.. Abdominal US shows gall stone. Review of Systems Constitutional Constitutional: Fatigue, Weakness GI/Abdomen GI/Abdominal Exam: Abdominal Pain Vitals/Results Intake & Output 05/05/16 05/05/16 05/06/16 15:00 23:00 07:00 Intake Total 1269 ml 600 ml 2018 ml Output Total 800 ml 1650 ml 750 ml Balance 469 ml -1050 ml 1268 ml Intake Oral 120 ml 600 ml IV Total 1149 ml 2018 ml Output Urine Total 800 ml 1650 ml 750 ml Vital Signs Vital Signs Date Time Temp Pulse Resp B/P Pulse Ox O2 Delivery O2 Flow Rate FiO2 05/06/16 04:00 99.6 75 18 137/69 98 05/06/16 00:00 99.0 81 16 109/57 98 05/05/16 20:00 99.4 83 18 120/56 99 05/05/16 14:51 120/65 05/05/16 14:00 96.0 77 17 130/70 99 05/05/16 11:19 98.8 79 18 121/77 97 05/05/16 08:53 99.3 16 05/05/16 08:31 97.2 82 123/71 CBC/BMP: 05/06/16 0720 05/05/16 0653 Lab Results Laboratory Tests Test 05/06/16 07:20 White Blood Count 11.0 TH/MM3 Red Blood Count 4.38 MIL/MM3 Hemoglobin 12.8 GM/DL Hematocrit 37.5 % Mean Corpuscular Volume 85.6 FL Mean Corpuscular Hemoglobin 29.3 PG Mean Corpuscular Hemoglobin 34.3 % Concent Red Cell Distribution Width 13.3 % Platelet Count 248 TH/MM3 Mean Platelet Volume 7.8 FL Neutrophils (%) (Auto) 66.9 % Lymphocytes (%) (Auto) 23.1 % Monocytes (%) (Auto) 7.3 % Eosinophils (%) (Auto) 2.5 % Basophils (%) (Auto) 0.2 % Neutrophils # (Auto) 7.4 TH/MM3 Lymphocytes # (Auto) 2.6 TH/MM3 Monocytes # (Auto) 0.8 TH/MM3 Eosinophils # (Auto) 0.3 TH/MM3 Basophils # (Auto) 0.0 TH/MM3 CBC Comment DIFF FINAL Differential Comment Physical Exam General General Appearance: No Acute Distress, Comfortable Eyes Eye Exam: Sclera White, Extraocular Movement Intact Ears & Nose Ears & Nose Exam: Nasal Mucosa [place] Throat Throat Exam: Oral Mucosa [place] & Moist, Oral Pharynx Normal Neck Neck Exam: Neck Supple, Trachea Midline Pulmonary Resp Exam: Clear Bilaterally, Breath Sounds Equal Cardiology CV Exam: Regular, Normal Sinus Rhythm Gastrointestinal/Abdomen GI Exam: Soft, Positive Bowel Movement GI Remarks Epigastric tenderness. Musculoskeletal MS Exam: Joints Intact Integumentary Skin Exam: Clear, Warm, Dry, Intact, Normal Turgor Extremeties Extremities Exam: No Edema, Pedal Pulses Palpable Neurologic Neuro Exam: Alert, Awake, Oriented, Speech Clear, Moving All Extremities, No Focal Deficits PUD Prophylasis PUD Prophylaxis: Protonix Assessment/Plan Assessment/Plan ASSESSMENT 1. Acute pancreatitis, suspect alcohol induced plus/minus hypertriglyceridemia probably playing some role. 2. The leukocytosis due to above. 3. Elevated AST due to alcohol use. 4. History of alcohol use. 5. History of anxiety. 6. Gastroesophageal reflux disease. 7. Microscopic hematuria. 8. Hypokalemia. resolved. High WBC Count resolved. PLAN He is currently advance diet as tolerated. r. Control his pain with IV analgesics. checked ultrasound of the liver and gallbladder. GI input noted. Abdominal US shows gall stone. on Pepcid for GI protection. subcut. Lovenox for DVT prophylaxis. Check CBC, CMP Lipase in AM. I have counseled the patient against alcohol use, I have advised him to completely abstain from drinking. Hazards of continuous drinking, especially in the face of recurrent pancreatitis was explained. Consequences of recurrent pancreatitis was also explained to the patient and he relates understanding. Discussed Condition with: Patient Luis E Coelho MD May 06, 2016 08:28
[2016-05-06 08:36] LABS: ALT (GPT) 27 U/L (12-78); ANION GAP 8 MEQ/L (5-15); AST (GOT) 18 U/L (15-37); BICARBONATE 28.3 MEQ/L (21.0-32.0); BLOOD UREA NITROGEN 8 MG/DL (7-18); CHLORIDE 103 MEQ/L (98-107); GLOMERULAR FILTRATION RATE 95 ML/MIN (>89); POTASSIUM 3.6 MEQ/L (3.5-5.1); SODIUM (NA) 139 MEQ/L (136-145)
[2016-05-06 08:38] LABS: ALKALINE PHOSPHATASE 57 U/L (45-117); TOTAL BILIRUBIN ADULT 0.7 MG/DL (0.2-1.0)
[2016-05-06] MEDS: ENOXAPARIN SODIUM 40 MG/0.4 ML SYRINGE SQ SCH (10:06)
[2016-05-06] MEDS: PANTOPRAZOLE SOD 40 MG DELAYED RELEASE TAB PO SCH (10:06)
[2016-05-06 12:00] VITALS: BP 131/66; PULSE 78; RESP 18; TEMP 98.6; O2SAT 98
--- NOTE | 2016-05-06 12:09 | HHI.GIFU ---
Subjective Remarks Patient is sitting up in chair, was started on clears , tolerating so far, pain has improved, still with low grade fever, but improved as well, no nausea or vomiting (Brijesh Ray) Objective Vitals I&O Vital Signs Date Time Temp Pulse Resp B/P Pulse Ox O2 Delivery O2 Flow Rate FiO2 05/06/16 08:00 96.0 70 16 119/64 99 05/06/16 04:00 99.6 75 18 137/69 98 05/06/16 00:00 99.0 81 16 109/57 98 05/05/16 20:00 99.4 83 18 120/56 99 05/05/16 14:51 120/65 05/05/16 14:00 96.0 77 17 130/70 99 I/O 05/05/16 05/05/16 05/05/16 05/06/16 05/06/16 05/06/16 07:00 15:00 23:00 07:00 15:00 23:00 Intake Total 1200 ml 1269 ml 600 ml 2018 ml Output Total 700 ml 800 ml 1650 ml 750 ml Balance 500 ml 469 ml -1050 ml 1268 ml Intake Oral 120 ml 600 ml IV Total 1200 ml 1149 ml 2018 ml Output Urine Total 700 ml 800 ml 1650 ml 750 ml Laboratory Laboratory Tests Test 05/06/16 07:20 White Blood Count 11.0 Red Blood Count 4.38 Hemoglobin 12.8 Hematocrit 37.5 Mean Corpuscular Volume 85.6 Mean Corpuscular Hemoglobin 29.3 Mean Corpuscular Hemoglobin 34.3 Concent Red Cell Distribution Width 13.3 Platelet Count 248 Mean Platelet Volume 7.8 Neutrophils (%) (Auto) 66.9 Lymphocytes (%) (Auto) 23.1 Monocytes (%) (Auto) 7.3 Eosinophils (%) (Auto) 2.5 Basophils (%) (Auto) 0.2 Neutrophils # (Auto) 7.4 Lymphocytes # (Auto) 2.6 Monocytes # (Auto) 0.8 Eosinophils # (Auto) 0.3 Basophils # (Auto) 0.0 CBC Comment DIFF FINAL Differential Comment Sodium Level 139 Potassium Level 3.6 Chloride Level 103 Carbon Dioxide Level 28.3 Anion Gap 8 Blood Urea Nitrogen 8 Creatinine 0.87 Estimat Glomerular Filtration 95 Rate Random Glucose 117 Calcium Level 9.0 Total Bilirubin 0.7 Aspartate Amino Transf 18 (AST/SGOT) Alanine Aminotransferase 27 (ALT/SGPT) Alkaline Phosphatase 57 Total Protein 6.8 Albumin 3.3 Lipase 631 Imaging Last Impressions Abdomen/Pelvis CT 05/05/16 0000 Signed Impressions: Service Date/Time: Thursday, May 05, 2016 21:14 - CONCLUSION: Abnormal appearance of the pancreas as described in detail. Gallstone. Carmelo Ryan MD Liver Ultrasound 05/04/16 0000 Signed Impressions: Service Date/Time: Wednesday, May 04, 2016 14:17 - CONCLUSION: 1. Nonspecific mild hepatomegaly. 2. Single stone in an otherwise normal-appearing gallbladder. No ductal stone or ductal dilatation demonstrated. Carmelo Atkins MD Physical Exam HEENT: Pupils round and reactive to light; normocephalic; atraumatic; no jaundice. Throat is clear. NECK: Neck is supple, no JVD, no lymphadenopathy. CHEST: Chest is clear to auscultation and percussion. CARDIAC: Regular rate and rhythm with no murmur gallop or rubs. ABDOMEN: Soft, nondistended,some tenderness on the left; hepatosplenomegaly; bowel sounds are present in all four quadrants. EXTREMITIES: No clubbing, cyanosis, or edema. SKIN: Normal; no rash; no jaundice. PRESSING DEPARTMENT SUPERVISOR: No focal deficits; alert and oriented times three. (Brijesh Ray) Assessment and Plan Assessment: (1) Acute pancreatitis Plan: Has recurrent Pancreatitis related to hyperlipidemia but did amount to drinking alcohol and this could be alcohol induced Lipase trending down LFTs normal IGG 4 pending US liver and gallbladder showed hepatomegaly , and single gallstone CT showed the pancreas is abnormal with mild apparent swelling of the pancreatic head and slight induration of peripancreatic tissue adjacent to the head and pancreatic tail region, mild induration extends into the left anterior pararenal space and left paracolic gutter. Ther is a slightly grater hernandez 2 CM focal low density area within substance of the pancreatic tail which may be some devitalized tissue or developing collection, mass in snot entirely excluded , but less likely Pain management Antiemetics (2) GERD (gastroesophageal reflux disease) Plan: Continue PPI Epigastric pain likely secondary to pancreatitis (3) Leukocytosis Plan: Resolved , but low grade fever of 99, Likely secondary to acute pancreatitis Plan Plan - Clear liquid, advance as tolerated - Patient would need EUS, this could be done as an OP, this is not done at this facility - CT in few weeks to f/u on findings -Alcohol cessation - Ca 19-9, AFP, CEA - lipase in am -Pain management -PPI -Await IGG-4 -Supportive care Patient was seen by Dr Paetl and myself, this consult is written on his behalf (Brijesh Ray) Physician Comments Patient was seen and examined, doing better, we will advance diet slowly. ( Markus Patel MD) Problem Qualifiers (1) Acute pancreatitis: Qualified Code: K85.90 - Acute pancreatitis, unspecified complication status, unspecified pancreatitis type (2) GERD (gastroesophageal reflux disease): Qualified Code: K21.9 - Gastroesophageal reflux disease, esophagitis presence not specified Brijesh Ray May 06, 2016 12:09 Markus Patel MD May 06, 2016 17:42
[2016-05-06 16:00] VITALS: BP 113/65; PULSE 77; RESP 16; TEMP 98.1; O2SAT 99
[2016-05-06 20:00] VITALS: BP 136/74; PULSE 71; RESP 18; TEMP 98.4; O2SAT 99
[2016-05-06] MEDS: ATORVASTATIN 40 MG TAB PO SCH (20:20)
[2016-05-06 23:55] LABS: IGG SUBCLASSES 4 10.3 mg/dL (4-86)
[2016-05-07] VITALS: BP 124/66; PULSE 67; RESP 16; TEMP 97.8; O2SAT 98
[2016-05-07 05:00] VITALS: BP 115/67; PULSE 69; RESP 16; TEMP 97.7; O2SAT 97
[2016-05-07] MEDS: FAMOTIDINE 20 MG/2 ML VIAL IV PUSH SCH (05:06)
[2016-05-07 06:57] LABS: AUTOMATED NEUTROPHIL # 6.5 TH/MM3 (1.8-7.7); BASOPHIL % 0.2 % (0.0-2.0); EOSINOPHIL # 0.3 TH/MM3 (0-0.4); EOSINOPHIL % 2.6 % (0.0-4.0); HEMO FLAGS DIFF FINAL; LYMPH % 23.6 % (9.0-44.0); LYMPHOCYTE # 2.3 TH/MM3 (1.0-4.8); MEAN CELL VOLUME 85.6 FL (80.0-100.0); MEAN CORPUSCULAR HEMOGLOBIN 29.5 PG (27.0-34.0); MEAN CORPUSCULAR HGB CONC 34.4 % (32.0-36.0); MONO % 7.3 % (0.0-8.0); NEUT % 66.3 % (16.0-70.0); PLATELET COUNT 284 TH/MM3 (150-450); RED BLOOD COUNT 4.56 MIL/MM3 (4.50-5.90); RED CELL DISTRIBUTION WIDTH 13.3 % (11.6-17.2); WHITE BLOOD COUNT 9.8 TH/MM3 (4.0-11.0)
[2016-05-07 07:38] VITALS: BP 123/65; PULSE 68; RESP 20; TEMP 97.9; O2SAT 97
[2016-05-07 07:41] LABS: ALKALINE PHOSPHATASE 98 U/L (45-117); ALT (GPT) 58 U/L (12-78); ANION GAP 8 MEQ/L (5-15); AST (GOT) 42 U/L (15-37); BICARBONATE 28.1 MEQ/L (21.0-32.0); BLOOD UREA NITROGEN 14 MG/DL (7-18); CHLORIDE 103 MEQ/L (98-107); GLOMERULAR FILTRATION RATE 99 ML/MIN (>89); POTASSIUM 3.8 MEQ/L (3.5-5.1); SODIUM (NA) 139 MEQ/L (136-145); TOTAL BILIRUBIN ADULT 0.8 MG/DL (0.2-1.0)
[2016-05-07] MEDS: ENOXAPARIN SODIUM 40 MG/0.4 ML SYRINGE SQ SCH (09:28)
[2016-05-07] MEDS: PANTOPRAZOLE SOD 40 MG DELAYED RELEASE TAB PO SCH (09:28)
[2016-05-07 11:30] VITALS: BP 128/73; PULSE 75; RESP 20; TEMP 97.6; O2SAT 98
[2016-05-07] MEDS ORDERED: GEMF600 PO (12:00)
--- NOTE | 2016-05-07 12:14 | HHI.GIFU ---
Subjective Remarks Patient is sitting up in chair, going home soon. Denies abdominal pain, nausea or vomiting. (Brijesh Ray) Objective Vitals I&O Vital Signs Date Time Temp Pulse Resp B/P Pulse Ox O2 Delivery O2 Flow Rate FiO2 05/07/16 07:38 97.9 68 20 123/65 97 05/07/16 05:00 97.7 69 16 115/67 97 05/07/16 00:00 97.8 67 16 124/66 98 05/06/16 20:00 98.4 71 18 136/74 99 05/06/16 16:00 98.1 77 16 113/65 99 I/O 05/06/16 05/06/16 05/06/16 05/07/16 05/07/16 05/07/16 07:00 15:00 23:00 07:00 15:00 23:00 Intake Total 2018 ml 2048 ml 480 ml 480 ml Output Total 750 ml 850 ml Balance 1268 ml 1198 ml 480 ml 480 ml Intake Oral 960 ml 480 ml 480 ml IV Total 2018 ml 1088 ml Output Urine Total 750 ml 850 ml # Voids 6 2 2 # Bowel Movements 1 Laboratory Laboratory Tests Test 05/07/16 05:59 White Blood Count 9.8 Red Blood Count 4.56 Hemoglobin 13.4 Hematocrit 39.0 Mean Corpuscular Volume 85.6 Mean Corpuscular Hemoglobin 29.5 Mean Corpuscular Hemoglobin 34.4 Concent Red Cell Distribution Width 13.3 Platelet Count 284 Mean Platelet Volume 7.8 Neutrophils (%) (Auto) 66.3 Lymphocytes (%) (Auto) 23.6 Monocytes (%) (Auto) 7.3 Eosinophils (%) (Auto) 2.6 Basophils (%) (Auto) 0.2 Neutrophils # (Auto) 6.5 Lymphocytes # (Auto) 2.3 Monocytes # (Auto) 0.7 Eosinophils # (Auto) 0.3 Basophils # (Auto) 0.0 CBC Comment DIFF FINAL Differential Comment Sodium Level 139 Potassium Level 3.8 Chloride Level 103 Carbon Dioxide Level 28.1 Anion Gap 8 Blood Urea Nitrogen 14 Creatinine 0.84 Estimat Glomerular Filtration 99 Rate Random Glucose 96 Calcium Level 9.2 Total Bilirubin 0.8 Aspartate Amino Transf 42 (AST/SGOT) Alanine Aminotransferase 58 (ALT/SGPT) Alkaline Phosphatase 98 Total Protein 7.4 Albumin 3.4 Lipase 937 Tumor Marker Alpha Fetoprotein 1.3 Carcinoembryonic Antigen 2.5 CA 19-9 Antigen 42.2 Imaging Last Impressions Abdomen/Pelvis CT 05/05/16 0000 Signed Impressions: Service Date/Time: Thursday, May 05, 2016 21:14 - CONCLUSION: Abnormal appearance of the pancreas as described in detail. Gallstone. Carmelo Ryan MD Liver Ultrasound 05/04/16 0000 Signed Impressions: Service Date/Time: Wednesday, May 04, 2016 14:17 - CONCLUSION: 1. Nonspecific mild hepatomegaly. 2. Single stone in an otherwise normal-appearing gallbladder. No ductal stone or ductal dilatation demonstrated. Carmelo Atkins MD Physical Exam HEENT: Pupils round and reactive to light; normocephalic; atraumatic; no jaundice. Throat is clear. NECK: Neck is supple, no JVD, no lymphadenopathy. CHEST: Chest is clear to auscultation and percussion. CARDIAC: Regular rate and rhythm with no murmur gallop or rubs. ABDOMEN: Soft, nondistended, no tenderness ; hepatosplenomegaly; bowel sounds are present in all four quadrants. EXTREMITIES: No clubbing, cyanosis, or edema. SKIN: Normal; no rash; no jaundice. CHECK WRITING MACHINE OPERATOR: No focal deficits; alert and oriented times three. (Brijesh Ray) Assessment and Plan Assessment: (1) Acute pancreatitis Plan: Has recurrent Pancreatitis related to hyperlipidemia but did amount to drinking alcohol and this could be alcohol induced Lipase trending down LFTs normal IGG 4 negative AFP1.3, CEA 2.5, Ca 19-9 42.2, this could be normal finding in acute pancreatitis. US liver and gallbladder showed hepatomegaly , and single gallstone CT showed the pancreas is abnormal with mild apparent swelling of the pancreatic head and slight induration of peripancreatic tissue adjacent to the head and pancreatic tail region, mild induration extends into the left anterior pararenal space and left paracolic gutter. Ther is a slightly grater hernandez 2 CM focal low density area within substance of the pancreatic tail which may be some devitalized tissue or developing collection, mass in snot entirely excluded , but less likely (2) GERD (gastroesophageal reflux disease) Plan: Continue PPI Epigastric pain likely secondary to pancreatitis (3) Leukocytosis Plan: Resolved , afebrile, Likely secondary to acute pancreatitis Plan Plan - low fat diet - Patient would need EUS, this could be done as an OP, this is not done at this facility - CT in few weeks to f/u on findings - Alcohol cessation - Better control of triglycerides - Okay to DC home from GI stand point - F/u with GI in 2 weeks. - Supportive care Patient was seen by Dr Patel and myself, this consult is written on his behalf (Brijesh Ray) Physician Comments Patient was seen and examined, agree with above note and plan, ok to DC home in am (Markus Patel MD) Problem Qualifiers (1) Acute pancreatitis: Qualified Code: K85.90 - Acute pancreatitis, unspecified complication status, unspecified pancreatitis type (2) GERD (gastroesophageal reflux disease): Qualified Code: K21.9 - Gastroesophageal reflux disease, esophagitis presence not specified Brijesh Ray May 07, 2016 12:14 Markus Patel MD May 07, 2016 20:07
--- NOTE | 2016-05-08 08:44 | MD ---
cc: LUIS E SERRA MD ADMISSION DATE: 05/03/2016 DISCHARGE DATE: 05/07/2016 Okay to discharge the patient home. CONDITION AT THE TIME OF DISCHARGE Satisfactory. ACTIVITY Activity as tolerated. DIET Cardiac diet. ALLERGIES NO KNOWN DRUG ALLERGIES. DISCHARGE MEDICATIONS Include: 1. Gemfibrozil 600 mg twice a day. 2. Lipitor 40 mg p.o. daily. 3. Lortab 5/325 q. 6 hours p.r.n. pain. 4. Lorazepam 0.5 mg q. 4-hours p.r.n. anxiety. 5. [place]-3 polyunsaturated fatty acid 1000 mg p.o. daily. 6. Protonix 40 mg p.o. daily. The patient advised to follow with PCP and GI. The patient might need endoscopic ultrasound as an outpatient. ADMISSION DIAGNOSIS 1. Acute pancreatitis, suspected alcohol abuse plus hypertriglyceridemia. The patient advised to discontinue alcohol abuse. The patient started on Lopid for hypertriglyceridemia. 2. Leukocytosis secondary to acute pancreatitis which resolved. 3. Elevated AST due to alcohol abuse. 4. History of anxiety. 5. History of gastroesophageal reflux disease. 6. Hypokalemia which is resolved. 7. High WBC count which has resolved. HOSPITAL COURSE This is 45-year male who has seen me in my office as my patient and came in with abdominal pain, diagnosed with acute pancreatitis and the patient had a CT of the abdomen and pelvis done which showed abnormal appearance of the pancreas and also liver ultrasound done shows nonspecific mild hepatomegaly, small stone and otherwise normal appearing gallbladder, no ductal stone or ductal dilatation demonstrated. The patient remained stable during the hospital stay. The patient was seen by GI doctor, Dr. Nancy Ruiz is seeing the patient during the hospital stay. The patient needs endoscopic ultrasound as an outpatient. The patient remained stable, no acute event happened, discharged in satisfactory condition. Further details in the medical record. Luis E Serra MD EA/JOAN /12:05 PM /8:40 AM
[2016-08-13] MEDS ORDERED: ATOR10TA15 PO (09:41)
[2016-08-13] MEDS ORDERED: FENO1TAB46 PO (09:41)
[2016-08-13] MEDS ORDERED: OSEL75 PO (10:33)
[2016-09-22] MEDS ORDERED: PROT40TA PO (11:43)
[2016-09-22] MEDS ORDERED: ATOR10TA15 PO (11:43)
[2016-09-22] MEDS ORDERED: FENO1TAB46 PO (11:43)
[2016-09-24] MEDS ORDERED: FENO145T2 PO (10:31)
[2016-10-01] MEDS ORDERED: FENO145T2 PO (23:50)
[2016-10-01] MEDS ORDERED: ATOR10TA15 PO (23:50)
[2016-10-01] MEDS ORDERED: PROT40TA PO (23:52)
== END 2016-05-07 13:58 | disposition home or self-care (01) | DRG 440 ==
LOC: NEPE 12:01 → NEDA 16:27 → HOCB 18:43
PROVIDERS: ADMIT Specialist; ATTEND Specialist
DX: K85.20 Alcohol induced acute pancreatitis without necrosis or infection (principal); R16.0 Hepatomegaly, not elsewhere classified; K86.0 Alcohol-induced chronic pancreatitis; E78.1 Pure hyperglyceridemia; F41.9 Anxiety disorder, unspecified; R31.29 Other microscopic hematuria; E66.9 Obesity, unspecified; K80.20 Calculus of gallbladder without cholecystitis without obstruction; E87.6 Hypokalemia; K21.9 Gastro-esophageal reflux disease without esophagitis; F10.10 Alcohol abuse, uncomplicated; F12.90 Cannabis use, unspecified, uncomplicated; Z68.29 Body mass index [BMI] 29.0-29.9, adult
CPT/HCPCS: 74177; 76705; 80053; 80061; 81001; 82105; 82378; 82784; 82787; 83690; 84132; 85025; 85027; 85610; 85730; 86301; 93005; 96361; 96374; 96375; 96376; J1170; J1650; J2270; J2405; J7030; Q9963; Q9967